=== PATIENT | female | born 1995 | race Caucasian/White ===

== ENCOUNTER → 2019-03-07 | Outpatient (CLI) | payer OTHER ==
[~2019-03-07] MED LIST: CETI10TA; IBUP80TA PO; MAPA500T2 PO; SULF800T; VICO5TAB; VITAPRTA PO
[2019-03-07 18:07] LABS: HEMATOCRIT 33.2 % (36.0-47.0); MEAN CORPUSCULAR HEMOGLOBIN 28.4 pg (27.0-33.0); MEAN CORPUSCULAR HGB CONC 33.1 g/dl (32.0-36.5); MEAN CORPUSCULAR VOLUME 85.8 fl (80.0-96.0); PLATELET COUNT, AUTOMATED 353 10^3/uL (150-450); RED BLOOD COUNT 3.87 10^6/uL (4.00-5.40)
[2019-03-07 18:17] LABS: ALT/SGPT 107 U/L (12-78); BILIRUBIN,TOTAL 0.3 MG/DL (0.2-1.0); CREATININE FOR GFR 0.44 MG/DL (0.55-1.30); GLOMERULAR FILTRATION RATE > 60.0 (>60); LDH LACTATE DEHYDROGENASE 143 U/L (84-246); URIC ACID 3.9 MG/DL (2.6-6.0)
[2019-03-07 18:26] LABS: CREATININE,RANDOM URINE 30.3 MG/DL; TOTAL PROTEIN,RANDOM URINE 7.8 MG/DL (0.0-12.0)
== END ==
LOC: M SMT 13:49
PROVIDERS: ATTEND Advanced Practice Midwife
DX: O14.93 Unspecified pre-eclampsia, third trimester (principal); Z3A.00 Weeks of gestation of pregnancy not specified

== ENCOUNTER → 2019-03-19 | Outpatient (CLI) | payer OTHER ==
[~2019-03-19] MED LIST changes: +ACET-683 PO
== END ==
LOC: M SMT 09:34
PROVIDERS: ATTEND Advanced Practice Midwife
DX: O99.213 Obesity complicating pregnancy, third trimester (principal); Z3A.35 35 weeks gestation of pregnancy; E66.9 Obesity, unspecified

== ENCOUNTER → 2019-03-19 | Outpatient (REF) | payer OTHER ==
[~2019-03-19] MED LIST changes: -ACET-683 PO
== END ==
LOC: M LAB REF 12:46
PROVIDERS: ATTEND Advanced Practice Midwife
DX: O99.213 Obesity complicating pregnancy, third trimester (principal); Z3A.35 35 weeks gestation of pregnancy

== ENCOUNTER 2019-04-14 21:27 | Inpatient (IN) | payer OTHER ==
[~2019-04-14] VITALS: Ht 170.2 cm; Wt 125.0 kg
[2019-04-14 22:39] VITALS: BP 104/67
[2019-04-14] MEDS ORDERED: LACTATED RINGER'S 1000 ML IV STA (23:51)
[2019-04-14] MEDS ORDERED: PENICILLIN G POTASSIUM IV 5 MU in D5W MINI-BAG PLUS 100 ML IV STA (23:51)
[2019-04-15] VITALS (20 sets, daily range): BP systolic 111–181; BP diastolic 52–92
[2019-04-15] MEDS ORDERED: PENICILLIN G POTASSIUM 5 MU VIAL As Ordered ONE
[2019-04-15] MEDS ORDERED: miSOPROStol 50 MCG 1/2 TAB (S0191) As Ordered ONE
[2019-04-15] MEDS: miSOPROStol 50 MCG 1/2 TAB (S0191) PO SCH ×4 (00:04→12:00)
[2019-04-15 00:55] LABS: HEMATOCRIT 32.8 % (36.0-47.0); HEMOGLOBIN 10.9 g/dl (12.0-15.5); MEAN CORPUSCULAR HEMOGLOBIN 28.6 pg (27.0-33.0); MEAN CORPUSCULAR HGB CONC 33.2 g/dl (32.0-36.5); MEAN CORPUSCULAR VOLUME 86.1 fl (80.0-96.0); PLATELET COUNT, AUTOMATED 348 10^3/uL (150-450); RED BLOOD COUNT 3.81 10^6/uL (4.00-5.40); WHITE BLOOD COUNT 7.7 10^3/uL (4.0-10.0)
[2019-04-15] MEDS: PENICILLIN G POTASSIUM IV 2.5 MU in APPROPRIATE DILUENT 1 EA IV SCH ×4 (04:05→16:15)
[2019-04-15] MEDS: LR 1,000 ML IV SCH ×3 (08:27→18:30)
[2019-04-15] MEDS ORDERED: OXYTOCIN DRIP 30 UNITS in APPROPRIATE DILUENT 1 EA IV SCH ×2 (13:00→18:30)
[2019-04-15] MEDS ORDERED: ACETAMINOPHEN 500 MG TAB PO PRN (18:15)
[2019-04-15] MEDS ORDERED: MEASLES,MUMPS,RUBELLA VACCINE INJ (MMR-II) (90707) SC SCH (18:15)
[2019-04-15] MEDS ORDERED: ONDANSETRON 4MG/2ML VIAL (J2405) IV PRN (18:15)
[2019-04-15] MEDS ORDERED: DOCUSATE SODIUM 100 MG CAP PO PRN (18:15)
[2019-04-15] MEDS ORDERED: DIBUCAINE 1% OINTMENT 30GM TOP PRN (18:15)
[2019-04-15] MEDS ORDERED: ACETAMINOPHEN TAB 650MG DOSE (2X325MG) PO PRN (18:15)
[2019-04-15] MEDS ORDERED: PROMETHAZINE 25 MG TAB PO PRN (18:15)
[2019-04-15] MEDS ORDERED: IBUPROFEN 600 MG TAB PO PRN (18:15)
[2019-04-15] MEDS ORDERED: IBUPROFEN 800 MG TAB PO PRN (18:15)
[2019-04-15] MEDS ORDERED: RHOGAM 300 MCG (1500 IU) INJ (J2790) IM SCH (18:15)
[2019-04-16] MEDS: LR 1,000 ML IV SCH (02:30)
[2019-04-16 05:49] VITALS: BP 110/57
[2019-04-16] MEDS: PRENATAL VITAMINS CHEWABLE TABLET PO SCH (08:25)
[2019-04-16 18:00] VITALS: BP 138/65
[2019-04-17] MEDS ORDERED: IBUP80TA PO (06:07)
[2019-04-17] MEDS ORDERED: ACET-683 PO (06:07)
[2019-04-17 06:42] VITALS: BP 144/72
[2019-04-17] MEDS: PRENATAL VITAMINS CHEWABLE TABLET PO SCH (07:54)
== END 2019-04-17 11:10 | disposition home or self-care (01) | DRG 560 ==
LOC: M LDI 21:27 → M OBS 04-15 20:10
PROVIDERS: ADMIT Obstetrics & Gynecology; ATTEND Obstetrics & Gynecology
PROC: 3E033VJ Introduction of Other Hormone into Peripheral Vein, Percutaneous Approach (ICD-10-PCS; 2019-04-14)
PROC: 10E0XZZ Delivery of Products of Conception, External Approach (ICD-10-PCS; principal; 2019-04-15)
DX: O99.824 Streptococcus B carrier state complicating childbirth (principal); Z37.0 Single live birth; Z3A.39 39 weeks gestation of pregnancy

== ENCOUNTER 2020-06-07 19:31 | Emergency (ER) | payer OTHER ==
[~2020-06-07] VITALS: Ht 177.8 cm; Wt 111.7 kg
[~2020-06-07 19:31] MED LIST changes: +ACET-683 PO
[2020-06-07] MEDS ORDERED: NS 1,000 ML IV ONE (20:15)
[2020-06-07 20:35] LABS: BASO # 0.1 10^3/uL (0.0-0.2); BASO % 0.4 % (0.0-1.0); EOS # 0.3 10^3/uL (0.0-0.5); HEMATOCRIT 37.3 % (36.0-47.0); HEMOGLOBIN 12.5 g/dl (12.0-15.5); LYMPH # 2.8 10^3/uL (1.5-5.0); LYMPH % 25.3 % (24.0-44.0); MEAN CORPUSCULAR HEMOGLOBIN 28.3 pg (27.0-33.0); MEAN CORPUSCULAR HGB CONC 33.5 g/dl (32.0-36.5); MEAN CORPUSCULAR VOLUME 84.4 fl (80.0-96.0); MONO # 0.9 10^3/uL (0.0-0.8); MONO % 7.6 % (0.0-5.0); NEUTROPHILS # 7.1 10^3/uL (1.5-8.5); NEUTROPHILS % 63.3 % (36.0-66.0); PLATELET COUNT, AUTOMATED 491 10^3/uL (150-450); RED BLOOD COUNT 4.42 10^6/uL (4.00-5.40); WHITE BLOOD COUNT 11.2 10^3/uL (4.0-10.0)
[2020-06-07 21:26] LABS: BLOOD UREA NITROGEN 16 MG/DL (7-18); CALCIUM LEVEL 9.3 MG/DL (8.5-10.1); CARBON DIOXIDE LEVEL 26 MEQ/L (21-32); CHLORIDE LEVEL 106 MEQ/L (98-107); CREATININE FOR GFR 0.77 MG/DL (0.55-1.30); GLOMERULAR FILTRATION RATE > 60.0 (>60); GLUCOSE, FASTING 91 MG/DL (70-100); HCG, SERUM QUANTITATIVE 3935 MIU/ML; POTASSIUM SERUM 4.3 MEQ/L (3.5-5.1); SODIUM LEVEL 138 MEQ/L (136-145)
--- NOTE | 2020-06-07 21:58 | REPVR ---
PROCEDURE INFORMATION: Exam: US First Trimester, Transabdominal Exam date and time: 06/07/2020 9:46 PM Age: 24 years old Clinical indication: Lmp or gestational age (in weeks): 5 weeks; Antepartum complications; Bleeding; ; Additional info: Heavy vaginal bleeding 5.5weeks preg TECHNIQUE: Imaging protocol: Real-time transabdominal obstetrical ultrasound of the maternal pelvis and a first trimester , less than 14 weeks 0 days, with image documentation. COMPARISON: No relevant prior studies available. FINDINGS: Gestation: See "Uterus" finding. MATERNAL: Uterus: The uterus measures 10.4 cm in its cephalocaudad dimension and 5.6 cm in its AP dimension. The endometrium is heterogeneous and measures 15 mm. No intrauterine gestational sac is seen. Cervix: Unremarkable. Right adnexa: The right ovary is not seen. Left adnexa: The left ovary is not seen. Intraperitoneal space: No intraperitoneal free fluid. IMPRESSION: 1. No intrauterine gestational sac is identified but only heterogeneous endometrium. Findings may reflect recent spontaneous AB. Ectopic is not excluded. Serial beta hCG levels may be of benefit for further evaluation. 2. Otherwise negative pelvic sonogram. No free fluid. Neither ovary is seen. Electronically signed by: Dontae Marshall On 06/07/2020 21:58:28 PM
[2020-06-07 22:28] VITALS: BP 145/75
== END 2020-06-07 22:32 | disposition home or self-care (01) ==
LOC: M ED 19:31
DX: O20.0 Threatened abortion (principal); O20.9 Hemorrhage in early pregnancy, unspecified; Z3A.00 Weeks of gestation of pregnancy not specified; Z79.899 Other long term (current) drug therapy

== ENCOUNTER → 2020-06-09 | Outpatient (CLI) | payer OTHER | LOC: M PLALAB 09:16 | PROVIDERS: ATTEND Specialist | DX: O20.0 Threatened abortion (principal); Z3A.00 Weeks of gestation of pregnancy not specified ==

== ENCOUNTER → 2020-10-29 | Outpatient (REF) | payer OTHER, MEDICAID | LOC: M PLALAB 12:46 | PROVIDERS: ATTEND Advanced Practice Midwife | DX: O09.291 Supervision of pregnancy with other poor reproductive or obstetric history, first trimester (principal) ==

== ENCOUNTER → 2020-11-07 | Outpatient (REF) | payer OTHER | LOC: M PLALAB 12:16 | PROVIDERS: ATTEND Advanced Practice Midwife | DX: O02.1 Missed abortion (principal) ==

== ENCOUNTER → 2021-01-29 | Outpatient (REF) | payer OTHER ==
[2021-01-29 15:32] LABS: HEMOGLOBIN 10.8 g/dl (12.0-15.5); MEAN CORPUSCULAR HEMOGLOBIN 25.7 pg (27.0-33.0); MEAN CORPUSCULAR HGB CONC 30.9 g/dl (32.0-36.5); MEAN CORPUSCULAR VOLUME 83.1 fl (80.0-96.0); PLATELET COUNT, AUTOMATED 435 10^3/uL (150-450); RED BLOOD COUNT 4.21 10^6/uL (4.00-5.40)
[2021-01-29 15:56] LABS: HEMOGLOBIN A1c 5.3 %
[2021-01-29 16:12] LABS: FREE T4 0.95 NG/DL (0.76-1.46); HCG, SERUM QUANTITATIVE < 1.0 MIU/ML; THYROID STIMULATING HORMONE 0.709 uIU/ML (0.358-3.740)
== END ==
LOC: M PLALAB 12:14
PROVIDERS: ATTEND Advanced Practice Midwife
DX: O03.9 Complete or unspecified spontaneous abortion without complication (principal); N96 Recurrent pregnancy loss

== ENCOUNTER → 2021-01-29 | Outpatient (REF) | payer OTHER | LOC: M SFHCWAGY 13:46 | PROVIDERS: ATTEND Advanced Practice Midwife | DX: Z01.419 Encounter for gynecological examination (general) (routine) without abnormal findings (principal); Z12.4 Encounter for screening for malignant neoplasm of cervix ==

== ENCOUNTER 2021-10-12 07:24 | Emergency (ER) | payer OTHER ==
[~2021-10-12] VITALS: Ht 170.2 cm; Wt 104.5 kg
[2021-10-12 08:26] LABS: BASO # 0.1 10^3/uL (0.0-0.2); BASO % 0.7 % (0.0-1.0); EOS # 0.3 10^3/uL (0.0-0.5); EOS % 4.2 % (0.0-3.0); HEMATOCRIT 36.1 % (36.0-47.0); HEMOGLOBIN 12.1 g/dl (12.0-15.5); LYMPH # 2.1 10^3/uL (1.5-5.0); LYMPH % 29.3 % (24.0-44.0); MEAN CORPUSCULAR HEMOGLOBIN 28.3 pg (27.0-33.0); MEAN CORPUSCULAR HGB CONC 33.5 g/dl (32.0-36.5); MEAN CORPUSCULAR VOLUME 84.3 fl (80.0-96.0); MONO # 0.5 10^3/uL (0.0-0.8); MONO % 6.8 % (2.0-8.0); NEUTROPHILS # 4.2 10^3/uL (1.5-8.5); NEUTROPHILS % 58.7 % (36.0-66.0); PLATELET COUNT, AUTOMATED 427 10^3/uL (150-450); RED BLOOD COUNT 4.28 10^6/uL (4.00-5.40); WHITE BLOOD COUNT 7.2 10^3/uL (4.0-10.0)
[2021-10-12 09:05] LABS: HCG, SERUM QUANTITATIVE 2674 MIU/ML
[2021-10-12 11:22] LABS: ALBUMIN 3.5 GM/DL (3.2-5.2); ALT/SGPT 15 U/L (12-78); BILIRUBIN,TOTAL 0.2 MG/DL (0.2-1.0); BLOOD UREA NITROGEN 14 MG/DL (7-18); CARBON DIOXIDE LEVEL 24 MEQ/L (21-32); CHLORIDE LEVEL 106 MEQ/L (98-107); CREATININE FOR GFR 0.53 MG/DL (0.55-1.30); GLOMERULAR FILTRATION RATE > 60.0 (>60); GLUCOSE, FASTING 91 MG/DL (70-100); POTASSIUM SERUM 4.4 MEQ/L (3.5-5.1); SODIUM LEVEL 137 MEQ/L (136-145); TOTAL PROTEIN 6.9 GM/DL (6.4-8.2)
[2021-10-12 12:35] VITALS: BP 126/81
== END 2021-10-12 12:37 | disposition home or self-care (01) ==
LOC: M ED 07:24
DX: O20.8 Other hemorrhage in early pregnancy (principal); Z3A.00 Weeks of gestation of pregnancy not specified

== ENCOUNTER 2021-10-17 11:27 | Emergency (ER) | payer OTHER ==
[~2021-10-17] VITALS: Ht 170.2 cm; Wt 106.0 kg
[2021-10-17 13:50] VITALS: BP 124/56
== END 2021-10-17 14:00 | disposition home or self-care (01) ==
LOC: M ED 11:27
DX: O03.9 Complete or unspecified spontaneous abortion without complication (principal); Z3A.01 Less than 8 weeks gestation of pregnancy

== ENCOUNTER → 2021-10-21 | Outpatient (CLI) | payer OTHER | LOC: M PLALAB 15:28 | PROVIDERS: ATTEND Advanced Practice Midwife | DX: O03.9 Complete or unspecified spontaneous abortion without complication (principal) ==

== ENCOUNTER → 2022-01-18 | Outpatient (CLI) | payer OTHER | LOC: M PLALAB 14:33 | PROVIDERS: ATTEND Advanced Practice Midwife | DX: O09.299 Supervision of pregnancy with other poor reproductive or obstetric history, unspecified trimester (principal) ==

== ENCOUNTER → 2022-01-20 | Outpatient (CLI) | payer OTHER | LOC: M PLALAB 10:43 | PROVIDERS: ATTEND Advanced Practice Midwife | DX: O09.299 Supervision of pregnancy with other poor reproductive or obstetric history, unspecified trimester (principal) ==

== ENCOUNTER → 2022-04-15 | Outpatient (CLI) | payer OTHER ==
[2022-04-15 13:25] LABS: BASO % 0.5 % (0.0-1.0); EOS # 0.2 10^3/uL (0.0-0.5); EOS % 1.8 % (0.0-3.0); HEMATOCRIT 32.6 % (36.0-47.0); HEMOGLOBIN 10.8 g/dl (12.0-15.5); LYMPH # 1.9 10^3/uL (1.5-5.0); MEAN CORPUSCULAR HGB CONC 33.1 g/dl (32.0-36.5); MEAN CORPUSCULAR VOLUME 87.4 fl (80.0-96.0); MONO # 0.6 10^3/uL (0.0-0.8); MONO % 6.8 % (2.0-8.0); NEUTROPHILS # 5.6 10^3/uL (1.5-8.5); NEUTROPHILS % 67.7 % (36.0-66.0); PLATELET COUNT, AUTOMATED 342 10^3/uL (150-450); RED BLOOD COUNT 3.73 10^6/uL (4.00-5.40); WHITE BLOOD COUNT 8.3 10^3/uL (4.0-10.0)
[2022-04-15 14:29] LABS: HEPATITIS C VIRUS ABY INDEX < 0.0 INDEX (<0.8); HIV 1&2 SCREEN CENTAUR NEGATIVE (NEGATIVE)
[2022-04-15 14:59] LABS: GC DNA AMPLIFICATION NEGATIVE (NEGATIVE)
== END ==
LOC: M PLALAB 11:29
PROVIDERS: ATTEND Advanced Practice Midwife
DX: O99.211 Obesity complicating pregnancy, first trimester (principal); Z3A.00 Weeks of gestation of pregnancy not specified

== ENCOUNTER → 2022-04-15 | Outpatient (CLI) | payer OTHER | LOC: M PLALAB 11:32 | PROVIDERS: ATTEND Obstetrics & Gynecology | DX: Z34.80 Encounter for supervision of other normal pregnancy, unspecified trimester (principal) ==

== ENCOUNTER → 2022-05-04 | Outpatient (CLI) | payer OTHER | LOC: M WHC 06:57 | PROVIDERS: ATTEND Obstetrics & Gynecology | DX: O99.012 Anemia complicating pregnancy, second trimester (principal); Z3A.19 19 weeks gestation of pregnancy ==

== ENCOUNTER → 2022-05-27 | Outpatient (CLI) | payer OTHER | LOC: M WHC 09:24 | PROVIDERS: ATTEND Obstetrics & Gynecology | DX: Z36.89 Encounter for other specified antenatal screening (principal) ==

== ENCOUNTER → 2022-06-29 | Outpatient (CLI) | payer OTHER ==
[2022-06-29 13:35] LABS: HEMATOCRIT 31.5 % (36.0-47.0); HEMOGLOBIN 10.4 g/dl (12.0-15.5); MEAN CORPUSCULAR HEMOGLOBIN 29.2 pg (27.0-33.0); MEAN CORPUSCULAR VOLUME 88.5 fl (80.0-96.0); PLATELET COUNT, AUTOMATED 353 10^3/uL (150-450); RED BLOOD COUNT 3.56 10^6/uL (4.00-5.40); WHITE BLOOD COUNT 7.3 10^3/uL (4.0-10.0)
== END ==
LOC: M PLALAB 09:13
PROVIDERS: ATTEND Advanced Practice Midwife
DX: Z36.89 Encounter for other specified antenatal screening (principal); O26.22 Pregnancy care for patient with recurrent pregnancy loss, second trimester; Z3A.00 Weeks of gestation of pregnancy not specified

== ENCOUNTER 2022-07-22 12:48 | Emergency (ER) | payer OTHER ==
[~2022-07-22] VITALS: Ht 170.2 cm; Wt 111.4 kg
[2022-07-22 12:49] VITALS: BP 136/75
[2022-07-22] MEDS ORDERED: DOCU100C16 (12:59)
[2022-07-22] MEDS ORDERED: FERR32TA (12:59)
[2022-07-22 13:58] LABS: BASO % 0.1 % (0.0-1.0); EOS % 0.1 % (0.0-3.0); HEMATOCRIT 32.4 % (36.0-47.0); HEMOGLOBIN 10.8 g/dl (12.0-15.5); LYMPH # 0.5 10^3/uL (1.5-5.0); MEAN CORPUSCULAR HEMOGLOBIN 28.5 pg (27.0-33.0); MEAN CORPUSCULAR HGB CONC 33.3 g/dl (32.0-36.5); MEAN CORPUSCULAR VOLUME 85.5 fl (80.0-96.0); MONO # 0.6 10^3/uL (0.0-0.8); MONO % 7.4 % (2.0-8.0); NEUTROPHILS # 6.4 10^3/uL (1.5-8.5); NEUTROPHILS % 84.9 % (36.0-66.0); PLATELET COUNT, AUTOMATED 329 10^3/uL (150-450); RED BLOOD COUNT 3.79 10^6/uL (4.00-5.40); WHITE BLOOD COUNT 7.6 10^3/uL (4.0-10.0)
[2022-07-22] MEDS ORDERED: ASPI81CH48 PO (14:12)
[2022-07-22 15:25] LABS: BLOOD UREA NITROGEN 10 MG/DL (7-18); CALCIUM LEVEL 8.8 MG/DL (8.5-10.1); CARBON DIOXIDE LEVEL 22 MEQ/L (21-32); CHLORIDE LEVEL 103 MEQ/L (98-107); CREATININE FOR GFR 0.45 MG/DL (0.55-1.30); FREE T4 1.05 NG/DL (0.76-1.46); GLOMERULAR FILTRATION RATE > 60.0 (>60); GLUCOSE, FASTING 80 MG/DL (70-100); MAGNESIUM LEVEL 1.7 MG/DL (1.8-2.4); POTASSIUM SERUM 3.7 MEQ/L (3.5-5.1); SODIUM LEVEL 134 MEQ/L (136-145); THYROID STIMULATING HORMONE 0.703 uIU/ML (0.358-3.740)
== END 2022-07-22 13:54 | disposition admitted as inpatient to this hospital (09) ==
LOC: M ED 13:38
DX: O26.893 Other specified pregnancy related conditions, third trimester (principal); R00.2 Palpitations; R06.00 Dyspnea, unspecified; M54.50 Low back pain, unspecified; R00.0 Tachycardia, unspecified; Z90.89 Acquired absence of other organs; Z79.899 Other long term (current) drug therapy

== ENCOUNTER 2022-07-22 13:54 | Outpatient (CLI) | payer OTHER ==
[~2022-07-22] VITALS: Ht 170.2 cm; Wt 109.0 kg
[~2022-07-22 13:54] MED LIST changes: +DOCU100C16; +FERR32TA
[2022-07-22 14:10] VITALS: BP 110/55
[2022-07-22] MEDS ORDERED: ASPI81CH48 PO (14:12)
[2022-07-22] MEDS ORDERED: HOME MED LIST COMPLETE! XX SCH (14:15)
[2022-07-22 15:19] VITALS: BP 98/56
== END 2022-07-22 16:16 | disposition home or self-care (01) ==
LOC: M LDO 13:54
PROVIDERS: ATTEND Obstetrics & Gynecology
DX: O26.893 Other specified pregnancy related conditions, third trimester (principal); R07.9 Chest pain, unspecified; R25.2 Cramp and spasm; R00.2 Palpitations; R00.0 Tachycardia, unspecified; M54.50 Low back pain, unspecified; N89.8 Other specified noninflammatory disorders of vagina; Z3A.30 30 weeks gestation of pregnancy

== ENCOUNTER → 2022-08-24 | Outpatient (REF) | payer OTHER ==
[~2022-08-24] MED LIST changes: +ASPI81CH48 PO
== END ==
LOC: M PLALAB 10:12
PROVIDERS: ATTEND Advanced Practice Midwife
DX: Z34.93 Encounter for supervision of normal pregnancy, unspecified, third trimester (principal)

== ENCOUNTER 2022-09-24 20:55 | Inpatient (IN) | payer OTHER ==
[~2022-09-24] VITALS: Ht 170.2 cm; Wt 123.0 kg
[2022-09-24 21:38] VITALS: BP 119/65
[2022-09-24] MEDS ORDERED: IRON65TA2 PO (21:49)
[2022-09-24] MEDS ORDERED: COLA100C5 PO (21:50)
[2022-09-24] MEDS ORDERED: CARBOPROST TROMETHAMINE 250 MCG/ML AMP IM PRN (22:15)
[2022-09-24] MEDS ORDERED: METHYLERGONOVINE MALEATE 0.2 MG/ML VIAL (J2210) IM PRN (22:15)
[2022-09-24] MEDS ORDERED: LIDOCAINE 1% MDV 20ML VIAL INFIL PRN (22:15)
[2022-09-24] MEDS ORDERED: TRANEXAMIC ACID INJection 1,000 MG in NS 100 ML IV PRN (22:15)
[2022-09-24] MEDS ORDERED: OXYTOCIN DRIP 30 UNITS in IV 1 EA IV PRN (22:15)
[2022-09-24] MEDS: miSOPROStol 50MCG 1/2 TABLET PO SCH (23:16)
[2022-09-24 23:17] VITALS: BP 118/56
[2022-09-25] VITALS (18 sets, daily range): BP systolic 115–178; BP diastolic 56–92
[2022-09-25 00:06] LABS: HEMATOCRIT 29.7 % (36.0-47.0); HEMOGLOBIN 9.7 g/dl (12.0-15.5); MEAN CORPUSCULAR HEMOGLOBIN 28.3 pg (27.0-33.0); MEAN CORPUSCULAR HGB CONC 32.7 g/dl (32.0-36.5); MEAN CORPUSCULAR VOLUME 86.6 fl (80.0-96.0); PLATELET COUNT, AUTOMATED 345 10^3/uL (150-450); RED BLOOD COUNT 3.43 10^6/uL (4.00-5.40); WHITE BLOOD COUNT 9.1 10^3/uL (4.0-10.0)
[2022-09-25] MEDS: miSOPROStol 50MCG 1/2 TABLET PO SCH (04:09)
[2022-09-25] MEDS ORDERED: RHOGAM 300MCG (1500IU) INJ IM SCH (07:55)
[2022-09-25] MEDS ORDERED: ANUSOL HC CREAM 30GM TOP PRN (07:55)
[2022-09-25] MEDS ORDERED: DIBUCAINE 1% OINTMENT 30GM TOP PRN (07:55)
[2022-09-25] MEDS: IBUPROFEN 600MG TAB PO PRN ×2 (08:00→16:18)
[2022-09-25] MEDS ORDERED: ONDANSETRON 4MG 2ML VIAL IV PRN (08:55)
[2022-09-25] MEDS: ACETAMINOPHEN 500 MG TAB PO PRN ×2 (09:20→21:03)
[2022-09-25] MEDS: DOCUSATE SODIUM 100MG CAPSULE PO SCH (11:20)
[2022-09-25] MEDS: PRENATAL VITAMINS CHEWABLE TABLET PO SCH (11:20)
[2022-09-25] MEDS: FERROUS SULFATE 325MG TAB PO SCH ×2 (11:20→20:58)
[2022-09-26 06:00] VITALS: BP 109/65
[2022-09-26] MEDS: PRENATAL VITAMINS CHEWABLE TABLET PO SCH (09:41)
[2022-09-26] MEDS: DOCUSATE SODIUM 100MG CAPSULE PO SCH (09:42)
[2022-09-26] MEDS: FERROUS SULFATE 325MG TAB PO SCH (09:42)
[2022-09-27] MEDS ORDERED: MEASLES,MUMPS,RUBELLA VACCINE INJ (MMR-II) SC.IMMUN ONE (09:00)
== END 2022-09-26 16:05 | disposition home or self-care (01) | DRG 560 ==
LOC: M LDI 20:55 → M OBS 09-25 10:39
PROVIDERS: ADMIT Advanced Practice Midwife; ATTEND Advanced Practice Midwife
PROC: 3E0P7GC Introduction of Other Therapeutic Substance into Female Reproductive, Via Natural or Artificial Opening (ICD-10-PCS; 2022-09-24)
PROC: 10E0XZZ Delivery of Products of Conception, External Approach (ICD-10-PCS; principal; 2022-09-25)
DX: O99.02 Anemia complicating childbirth (principal); E66.9 Obesity, unspecified; D64.9 Anemia, unspecified; O99.334 Smoking (tobacco) complicating childbirth; F17.200 Nicotine dependence, unspecified, uncomplicated; Z3A.39 39 weeks gestation of pregnancy; Z37.0 Single live birth; O99.214 Obesity complicating childbirth